=== PATIENT | female | born 1960 | race Caucasian/White ===

== ENCOUNTER → 2017-05-27 19:25 | Outpatient (CLI) | payer MEDICAID ==
[2016-01-30 15:58] VITALS: BMI 39.5
[~2017-05-27 19:25] MED LIST: CALAN80 MG PO; CLEOCIN HCL300 MG PO; HYDROCODON-ACE1 EAC7 PO; LEVOXYL25 MCG PO; LOVASTATIN20 MG PO; NEURONTIN 300300 MG PO; OMEPRAZOLE40 MG PO; PAXIL20 MG PO; PEPCID40 MG PO; TOPAMAX50 MG PO; ULTRAM50 MG PO; XANAX0.5 MG PO; ZANAFLEX4 MG PO; ZOFRAN4 MG PO
== END | disposition home or self-care (01) ==
LOC: D.MAMMO 13:45
DX: Z12.31 Encounter for screening mammogram for malignant neoplasm of breast (principal)